=== PATIENT | male | born 1945 ===

== ENCOUNTER 2016-12-21 13:32 | Emergency (ER) | payer OTHER ==
--- NOTE | 2016-12-21 14:06 | C.PDOC ---
History Of Present Illness 71 year old male presents to Emergency Department for evaluation of episode of epistaxis last night and this morning. Patient notes that he tried to prevent the nose bleed by pressing on the nasal bridge. Notes that episode of nose bleed lasted for approximately 30 minutes and resolved spontaneously. Otherwise , denies any lightheadedness, dizziness, headache, hematuria, blood in stool, fever, chills, or any other associated symptoms at this time. Time Seen by Provider: 12/21/16 13:46 Chief Complaint (Nursing): ENT Problem History Per: Patient History/Exam Limitations: None Onset/Duration Of Symptoms: Days Current Symptoms Are (Timing): Still Present Severity: None Pain Scale Rating Of: 0 Past Medical History Reviewed: Historical Data, Nursing Documentation, Vital Signs Vital Signs: Last Vital Signs Temp 97.9 F 12/21/16 13:39 Pulse 75 12/21/16 13:39 Resp 20 12/21/16 13:39 BP 122/72 12/21/16 13:39 Pulse Ox 100 12/21/16 14:17 Family History: States: Unknown Family Hx Review Of Systems Except As Marked, All Systems Reviewed And Found Negative. Constitutional: Negative for: Fever, Chills ENT: Positive for: Nose Discharge (nose bleed). Negative for: Nose Pain Cardiovascular: Negative for: Chest Pain, Light Headedness Respiratory: Negative for: Shortness of Breath Gastrointestinal: Negative for: Melena, Hematochezia Genitourinary: Negative for: Hematuria Neurological: Negative for: Headache, Dizziness Physical Exam - Physical Exam Appears: Non-toxic, No Acute Distress Skin: Warm, Dry, No Rash Head: Atraumatic, Normacephalic Eye(s): bilateral: Normal Inspection, EOMI Nose: No Epistaxis, No Deformity, No Tenderness, Other (prominent vessels in the left nostril septum, no active bleeding) Oral Mucosa: Moist Neck: Supple Chest: Symmetrical Cardiovascular: Rhythm Regular, No Murmur Respiratory: Normal Breath Sounds, No Rales, No Rhonchi, No Wheezing Extremity: Normal ROM, No Pedal Edema Neurological/Psych: Oriented x3, Normal Speech, Normal Cognition ED Course And Treatment - Laboratory Results Result Diagrams: 12/21/16 14:27 Lab Interpretation: No Acute Changes O2 Sat by Pulse Oximetry: 100 (on RA) Pulse Ox Interpretation: Normal Progress Note: Blood work ordered and reviewed. Reevaluation Time: 16:03 Reassessment Condition: Improved Disposition Counseled Patient/Family Regarding: Studies Performed, Diagnosis, Need For Followup - Disposition Referrals: Evaristo Lux MD [Staff Provider] - Disposition: HOME/ ROUTINE Disposition Time: 16:04 Condition: IMPROVED Additional Instructions: Use Highland Gel or Vaseline on the nasal mucosa to help keep it lubricated. Do not pick your nose or blow hard. Instructions: Nosebleed (ED) Forms: [employer] (Greek) - Clinical Impression Clinical Impression: Epistaxis not due to trauma - Scribe Statement The provider has reviewed the documentation as recorded by the Scribe Allen Oden All medical record entries made by the Scribe were at my direction and personally dictated by me. I have reviewed the chart and agree that the record accurately reflects my personal performance of the history, physical exam, medical decision making, and the department course for this patient. I have also personally directed, reviewed, and agree with the discharge instructions and disposition.
[2016-12-21 14:35] LABS: BASO # 0.1 K/uL (0.0-0.2); BASO % 0.6 % (0.0-2.0); EOS # 2.6 K/uL (0.0-0.7); HEMATOCRIT 45.8 % (35.0-51.0); LYMPH # 2.3 K/uL (1.0-4.3); LYMPH % 17.8 % (20.0-40.0); MEAN CELL VOLUME 93.1 fL (80.0-94.0); MEAN CORPUSCULAR HEMOGLOBIN 31.5 pg (27.0-31.0); MEAN CORPUSCULAR HGB CONC 33.9 g/dL (33.0-37.0); MEAN PLATELET VOLUME 7.6 fL (7.2-11.7); MONO % 7.6 % (0.0-10.0); NRBC % 0.1 % (0.0-2.0); WHITE BLOOD COUNT 12.8 K/uL (4.8-10.8)
[2016-12-21 16:15] VITALS: BP 129/82; PULSE 72; RESP 18; TEMP 97.4; O2SAT 96
== END 2016-12-21 16:21 | disposition home or self-care (01) ==
LOC: C.ER 13:32
DX: R04.0 Epistaxis (principal)